=== PATIENT | female | born 1950 | race African-American/Black ===

== ENCOUNTER 2017-01-13 12:04 | Inpatient (IN) | payer OTHER ==
[2017-01-13 13:49] VITALS: BMI 23.3
--- NOTE | 2017-01-13 14:20 | HP ---
CIWA Score - CIWA Score Nausea/Vomitin Muscle Tremors: 3 Anxiety: 3 Agitation: 3 Paroxysmal Sweats: 2 Orientation: 0-Oriented Tacttile Disturbances: 2-Mild Itch/Numbness/Burn Auditory Disturbances: 2-Mild Harshness/Frighten Visual Disturbances: 2-Mild Sensitivity Headache: 2-Mild CIWA-Ar Total Score: 22 Admission ROS BHS - HPI Chief Complaint: I NEED HELP TO STOP DRINKING ALCOHOL,COCAINE,,SEEKING DETOX,[facility] M[facility]DAY,LAST MEDICATED TODAY REMOVAL OF MAS FROM VOCAL CORD BENIGN IN 2004 WEIGHT LOSS HEPATITIS C TREATED LONGEST PERIOD OF SOBRIETY 9 YEARS Allergies/Adverse Reactions: Allergies Allergy/AdvReac Type Severity Reaction Status Date / Time No Known Allergies Allergy Verified 01/13/17 14:03 History of Present Illness: THIS 66 YEARS OLD FEMALE WITH ALCOHOL,COCAINE DEPENDENCE,MMTP 80 MGS /DAY, FOR DETOX MENTIONED Exam Limitations: No Limitations - Ebola screening Have you traveled outside of the country in the last 21 days: No Have you had contact with anyone from an Ebola affected area: No Have you been sick,other than usual withdrawal symptoms: No Do you have a fever: No - Review of Systems Constitutional: Night Sweats, Changes in sleep, Weakness, Unintentional Wgt. Loss EENT: reports: Nose Congestion Respiratory: reports: No Symptoms reported, Other (ASTHMA,COPD) Cardiac: reports: No Symptoms Reported GI: reports: Nausea, Vomiting, Abdominal cramping : reports: No Symptoms Reported Musculoskeletal: reports: Back Pain, Muscle Pain Integumentary: reports: Dryness Neuro: reports: Headache, Tremors Endocrine: reports: No Symptoms Reported Hematology: reports: No Symptoms Reported Psychiatric: reports: No Sypmtoms Reported, Judgement Intact, Mood/Affect Appropiate, Anxious, Depressed Patient History - Patient Medical History Hx Anemia: No Hx Asthma: Yes (ON ALBUTEROL INHALER) Hx Chronic Obstructive Pulmonary Disease (COPD): Yes (ON ALBUTEROL INHALER) Hx Cancer: No Hx Cardiac Disorders: No Hx Congestive Heart Failure: No Hx Hypertension: No Hx Hypercholesterolemia: No Hx Pacemaker: No HX Cerebrovascular Accident: No Hx Seizures: No Hx Dementia: No Hx Diabetes: No Hx Gastrointestinal Disorders: No Hx Liver Disease: Yes Hx Genitourinary Disorders: No Hx Sexually Transmitted Disorders: No Hx Renal Disease (ESRD): No Hx Thyroid Disease: No Hx Human Immunodeficiency Virus (HIV): No (LAST 2010 NEGAIVE) Hx Hepatitis C: Yes (TREATED) Hx Depression: Yes (ANXIETY) Hx Suicide Attempt: No Hx Bipolar Disorder: No Hx Schizophrenia: No Other Medical History: NO SUICIDAL,NO HOMICIDAL - Patient Surgical History Other Surgical History: REMOVAL OF TUMOR FROM VOCAL CORD ,LITHROTRYPSY OF RIGHT 05/13 - PPD History Previous Implant?: Yes Documented Results: Positive w/o proof Implanted On Prior [facility] Admission?: No PPD to be Administered?: Yes - Reproductive History Patient is a Female of Child Bearing Age (11 -55 yrs old): No Patient : No - Smoking Cessation Smoking history: Current every day smoker Have you smoked in the past 12 months: Yes Aproximately how many cigarettes per day: 5 Cigars Per Day: 0 Hx Chewing Tobacco Use: No Initiated information on smoking cessation: Yes 'Breaking Loose' booklet given: 01/13/17 - Substance & Tx. History Hx Alcohol Use: Yes Hx Substance Use: Yes Substance Use Type: Alcohol, Cocaine Hx Substance Use Treatment: Yes (2001 [facility]) - Substances Abused Alcohol Route: Oral Frequency: Daily Amount used: 1/2 pint cognac/ 5 wine coolers Age of first use: 12 Date of Last Use: 01/12/17 Crack Route: Smoking Frequency: Daily Amount used: $60 Age of first use: 32 Date of Last Use: 01/13/17 Family Disease History - Family Disease History Family Disease History: Other: Father (ALCOHOL,), Mother (ALCOL, ) Admission Physical Exam [facility] - Vital Signs Vital Signs: Vital Signs - 24 hr 01/13/17 13:47 Temperature 97.1 F L Pulse Rate 78 Respiratory 20 Rate Blood Pressure 142/98 - Physical General Appearance: Yes: Moderate Distress, Tremorous, Irritable, Sweating, Anxious HEENTM: Yes: Normal ENT Inspection, TAINA, Pharynx Normal Respiratory: Yes: Lungs Clear, Normal Breath Sounds, No Respiratory Distress Neck: Yes: Within Normal Limits, Supple, Trachea in good position Breast: Yes: Breast Exam Deferred Cardiology: Yes: Within Normal Limits, Regular Rhythm, Regular Rate, S1, S2 Abdominal: Yes: Within Normal Limits, Normal Bowel Sounds, Non Tender, Flat, Soft Genitourinary: Yes: Within Normal Limits Back: Yes: Muscle Spasm Musculoskeletal: Yes: Back pain, Muscle Pain Extremities: Yes: Within Normal Limits, Normal Range of Motion, Tremors Neurological: Yes: 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 intact, Fully Oriented, Alert, Motor Strength 5/5 Integumentary: Yes: Dry Lymphatic: Yes: Within Normal Limits - Diagnostic (1) Alcohol dependence with uncomplicated withdrawal Current Visit: Yes Status: Acute (2) Cocaine dependence Current Visit: Yes Status: Acute (3) Asthma Current Visit: Yes Status: Acute (4) COPD (chronic obstructive pulmonary disease) Current Visit: Yes Status: Acute (5) Methadone maintenance therapy patient Current Visit: Yes Status: Acute (6) Hepatitis C Current Visit: Yes Status: Acute (7) Weight loss Current Visit: Yes Status: Acute (8) Insomnia Current Visit: Yes Status: Acute (9) Right kidney stone Current Visit: Yes Status: Acute Cleared for Admission [facility] - Detox or Rehab [facility] Level of Care: Medically Managed Detox Regimen/Protocol: Librium [facility] Breath Alcohol Content Breath Alcohol Content: 0 Urine Pregancy Test - Result Urine Test Results: Negative- NO Line Present Urine Drug Screen - Results Drug Screen Negative: No Urine Drug Screen Results: ELZA-Cocaine, OPI-Opiates, MTD-Methadone
[2017-01-13] MEDS ORDERED: diphenhydrAMINE HCL 50 MG CAPSULE PO PRN (14:42)
[2017-01-13] MEDS ORDERED: ACETAMINOPHEN 325 MG TABLET (FP) PO PRN (14:42)
[2017-01-13] MEDS ORDERED: P-EPHED 60MG/TRIPROLIDI 2.5MG TABLET PO PRN (14:42)
[2017-01-13] MEDS ORDERED: hydrOXYzine PAMOATE 25 MG CAPSULE (FP) PO PRN (14:42)
[2017-01-13] MEDS ORDERED: MAGNESIUM CITRATE 300 ML BOTTLE PO PRN (14:42)
[2017-01-13] MEDS ORDERED: NICOTINE POLACRILEX 2 MG GUM BUC PRN (14:42)
[2017-01-13] MEDS ORDERED: guaiFENesin/D-METHORPHAN HB 10 ML UNIT-DOSE CUPS PO PRN (14:42)
[2017-01-13] MEDS ORDERED: MAG HYDROX/AL HYDROX/SIMETH 30 ML UNIT-DOSE CUP PO PRN (14:42)
[2017-01-13] MEDS ORDERED: MENTHOL/PHENOL 1 EACH UD MM PRN (14:42)
[2017-01-13] MEDS ORDERED: LOPERAMIDE HCL 2 MG CAPSULE PO PRN (14:42)
[2017-01-13] MEDS ORDERED: MAGNESIUM HYDROX 2400MG/30ML ORAL SUSPENSION 30 ML CUP PO PRN (14:42)
[2017-01-13] MEDS ORDERED: chlordiazePOXIDE HCL 25 MG CAPSULE PO PRN (14:42)
[2017-01-13 16:50] LABS: MCHC 32.3 g/dl (32.0-36.0); MEAN CELL VOLUME 92.7 fl (80-96); PLATELET COUNT 188 K/MM3 (134-434); RDW 15.3 % (11.6-15.6); WHITE BLOOD COUNT 3.9 K/mm3 (4.0-10.0)
[2017-01-13 17:01] LABS: ALBUMIN 3.6 g/dl (3.4-5.0); ANION GAP 7 (8-16); BILIRUBIN,TOTAL 0.6 mg/dL (0.2-1.0); CALCIUM 9.3 mg/dL (8.5-10.1); CO2 32 mmol/L (21-32); CREATININE 1.2 mg/dL (0.55-1.02); GLUCOSE,RANDOM 62 mg/dL (74-106); SGOT/AST 35 U/L (15-37); SGPT/ALT 38 U/L (12-78); TOT PROT 7.5 g/dl (6.4-8.2)
[2017-01-13 17:02] LABS: ALK PHOS 83 U/L (45-117)
[2017-01-13 17:11] LABS: URINE APPEARANCE CLEAR; URINE BILIRUBIN NEGATIVE (NEGATIVE); URINE BLOOD 2+ (NEGATIVE); URINE COLOR YELLOW; URINE GLUCOSE (UA) NEGATIVE (NEGATIVE); URINE KETONE NEGATIVE (NEGATIVE); URINE LEUK ESTERASE TRACE (NEGATIVE); URINE NITRITE NEGATIVE (NEGATIVE); URINE PROTEIN NEGATIVE (NEGATIVE)
[2017-01-13 17:25] LABS: URINE RBC 7 /hpf (0-3); URINE WBC 11 /hpf (3-5)
[2017-01-13] MEDS: chlordiazePOXIDE HCL 25 MG CAPSULE PO SCH ×2 (17:30→22:04)
[2017-01-13 17:39] LABS: PLATELET ESTIMATE ADEQUATE (NORMAL)
[2017-01-13] MEDS ORDERED: ALBUTEROL SO4 2.5/IPRATROPIUM 0.5 INH SOL 3 ML VIAL.NEB. NEB PRN (19:14)
[2017-01-13] MEDS: ALBUTEROL SO4 18 GM HFA INHALER IH PRN (19:22)
[2017-01-13] MEDS: THIAMINE HCL 100 MG TABLET (FP) PO SCH (22:03)
[2017-01-13 23:57] LABS: HIV 1 & 2 AB NEGATIVE; HIV 1 AGp24 NEGATIVE
[2017-01-14] MEDS: chlordiazePOXIDE HCL 25 MG CAPSULE PO SCH ×4 (06:09→23:02)
[2017-01-14] MEDS: ALBUTEROL SO4 18 GM HFA INHALER IH PRN ×2 (06:10→12:49)
[2017-01-14] MEDS ORDERED: METHADONE HCL 40 MG DISPERSABLE TABLET PO SCH (08:15)
--- NOTE | 2017-01-14 09:38 | CONSULT ---
[facility] Psychiatric Consult - Data Date of interview: 01/14/17 Admission source: [facility] Identifying data: This is 66 years old female with psychiatric hospitalization history, intoxicated with: Alcohol, Cocaine and Nicotine Substance Abuse History: Smoking history: Current every day smoker. Have you smoked in the past 12 months: Yes. Aproximately how many cigarettes per day: 5. Cigars Per Day: 0. Hx Chewing Tobacco Use: No. Initiated information on smoking cessation: Yes. 'Breaking Loose' booklet given: 01/13/17. - Substance & Tx. History. Hx Alcohol Use: Yes. Hx Substance Use: Yes. Substance Use Type : Alcohol, Cocaine. Hx Substance Use Treatment: Yes (2001 [facility]). - Substances Abused. Alcohol. Route: Oral. Frequency: Daily. Amount used: 1 /2 pint cognac/ 5 wine coolers. Age of first use: 12. Date of Last Use: . Crack. Route: Smoking. Frequency: Daily. Amount used: $60. Age of first use: 32. Date of Last Use: 01/13/17 Medical History: Right knee injury history, Asthma COPD, Weight bloss, HepC+, MMTO 80MG POQD Psychiatric History: Patient reports history of depression , [facility], denies suicidal history, reports taking prior to admission: Wellbutrin 75 mg poqd Physical/Sexual Abuse/Trauma History: Denies Additional Comment: Wellbutrin 75 mg poqd Mental Status Exam - Mental Status Exam Alert and Oriented to: Person Cognitive Function: Fair Patient Appearance: Unkempt Mood: Sad Affect: Flat Patient Behavior: Sedated Speech Pattern: Delayed Voice Loudness: Mildly Soft/Quiet Thought Process: Circumstantial Thought Disorder: Being Controlled Hallucinations: Denies Suicidal Ideation: Denies Homicidal Ideation: Denies Insight/Judgement: Fair Sleep: Difficulty falling asleep Appetite: Weight loss Muscle strength/Tone: Mild Hypotonicity Gait/Station: Shuffling Additional Comments: Wellbutrin 75 mg poqd Psychiatric Findings - Problem List ([place] 1, 2,3) (1) Alcohol dependence with uncomplicated withdrawal Current Visit: Yes Status: Acute (2) Cocaine dependence Current Visit: Yes Status: Acute (3) Methadone maintenance therapy patient Current Visit: Yes Status: Acute (4) Weight loss Current Visit: Yes Status: Acute (5) Drug-induced mood disorder Current Visit: Yes Status: Acute - Initial Treatment Plan Initial Treatment Plan: Wellbutrin 75 mg poqd
[2017-01-14] MEDS: PRENATAL VITAMINS W/ FOLIC ACID TABLET (FP) PO SCH (10:06)
[2017-01-14] MEDS: buPROPion HCL 75 MG TABLET PO SCH (10:06)
--- NOTE | 2017-01-14 10:34 | EKG ---
Test Reason : Blood Pressure : / mmHG Vent. Rate : 067 BPM Atrial Rate : 067 BPM P-R Int : 146 ms QRS Dur : 092 ms QT Int : 368 ms P-R-T Axes : 068 -22 026 degrees QTc Int : 388 ms NORMAL SINUS RHYTHM POSSIBLE LEFT ATRIAL ENLARGEMENT INCOMPLETE RIGHT BUNDLE BRANCH BLOCK LEFT VENTRICULAR HYPERTROPHY CANNOT RULE OUT SEPTAL INFARCT , AGE UNDETERMINED ABNORMAL ECG NO PREVIOUS ECGS AVAILABLE Confirmed by SUNI CRAIN, ANA ([id number]) on 01/14/2017 10:34:14 AM Referred By: Bishnu Conklin Confirmed By:ANA CULP MD
--- NOTE | 2017-01-14 10:36 | PN ---
S CIWA - CIWA Score Nausea/Vomitin-No Nausea/No Vomiting Muscle Tremors: 4-Moderate,w/Arms Extend Anxiety: 3 Agitation: 3 Paroxysmal Sweats: 3 Orientation: 0-Oriented Tacttile Disturbances: 0-None Auditory Disturbances: 0-None Visual Disturbances: 0-None Headache: 0-None Present CIWA-Ar Total Score: 13 S Progress Note (SOAP) Subjective: gas sweats body aches shakes i would like my methadone maintenance time switched to a later time about 10am. Objective: 01/14/17 10:30 Vital Signs Temperature 98.1 F 01/14/17 10:19 Pulse Rate 87 01/14/17 10:19 Respiratory Rate 18 01/14/17 10:19 Blood Pressure 142/87 01/14/17 10:19 O2 Sat by Pulse Oximetry (%) Laboratory Tests 01/13/17 01/13/17 01/13/17 14:30 14:30 14:30 WBC 3.9 L RBC 4.47 Hgb 13.4 Hct 41.4 MCV 92.7 MCH 30.0 MCHC 32.3 RDW 15.3 Plt Count 188 MPV 11.0 Platelet Estimate Adequate Platelet Comment Few giant plts RBC Morphology Sodium 143 Potassium 4.1 Chloride 104 Carbon Dioxide 32 Anion Gap 7 L BUN 15 Creatinine 1.2 H Creat Clearance w eGFR 45.23 Random Glucose 62 L Calcium 9.3 Total Bilirubin 0.6 AST 35 ALT 38 Alkaline Phosphatase 83 Total Protein 7.5 Albumin 3.6 Urine Color Urine Appearance Urine pH Ur Specific [place] Urine Protein Urine Glucose (UA) Urine Ketones Urine Blood Urine Nitrite Urine Bilirubin Urine Urobilinogen Urine RBC Urine WBC Ur Epithelial Cells HIV 1&2 Antibody Screen Negative HIV P24 Antigen Negative 01/13/17 15:00 WBC RBC Hgb Hct MCV MCH MCHC RDW Plt Count MPV Platelet Estimate Platelet Comment RBC Morphology Sodium Potassium Chloride Carbon Dioxide Anion Gap BUN Creatinine Creat Clearance w eGFR Random Glucose Calcium Total Bilirubin AST ALT Alkaline Phosphatase Total Protein Albumin Urine Color Yellow Urine Appearance Clear Urine pH 6.0 Ur Specific [place] 1.015 Urine Protein Negative Urine Glucose (UA) Negative Urine Ketones Negative Urine Blood 2+ H Urine Nitrite Negative Urine Bilirubin Negative Urine Urobilinogen 2.0 H Urine RBC 7 Urine WBC 11 Ur Epithelial Cells Rare HIV 1&2 Antibody Screen HIV P24 Antigen aaox3 ambulating no acute distress Assessment: 01/14/17 10:36 withdrawal sx Plan: continue detox increase fluids methadone maintenance time switched to 10am as per pt request
[2017-01-14] MEDS ORDERED: FLU VACCINE QUAD 60 MCG/0.5 ML (MDV 17-18) IM ONE (12:00)
[2017-01-14] MEDS ORDERED: PNEUMOC 13-VAL CONJ-DIP CRM/PF 0.5 ML DISP.SYRIN IM ONE (12:00)
[2017-01-14] MEDS ORDERED: PNEUMOCOCCAL 23 VACCINE 0.5 ML VIAL IM ONE (12:00)
[2017-01-14] MEDS ORDERED: ALBUTEROL SO4 2.5/IPRATROPIUM 0.5 INH SOL 3 ML VIAL.NEB. NEB PRN (12:38)
[2017-01-14] MEDS: SIMETHICONE 80 MG TAB.CHEW (FP) PO PRN ×2 (12:51→17:44)
[2017-01-14] MEDS: THIAMINE HCL 100 MG TABLET (FP) PO SCH (23:02)
[2017-01-15] MEDS: IBUPROFEN 400 MG TABLET (FP) PO PRN ×2 (02:34→22:22)
[2017-01-15] MEDS: chlordiazePOXIDE HCL 25 MG CAPSULE PO SCH ×2 (05:49→10:24)
[2017-01-15] MEDS: ALBUTEROL SO4 18 GM HFA INHALER IH PRN (10:23)
[2017-01-15] MEDS: buPROPion HCL 75 MG TABLET PO SCH (10:23)
[2017-01-15] MEDS: PRENATAL VITAMINS W/ FOLIC ACID TABLET (FP) PO SCH (10:24)
[2017-01-15] MEDS: SIMETHICONE 80 MG TAB.CHEW (FP) PO PRN ×2 (10:24→14:25)
[2017-01-15] MEDS: METHADONE HCL 40 MG DISPERSABLE TABLET PO SCH (10:24)
--- NOTE | 2017-01-15 12:30 | PN ---
S CIWA - CIWA Score Nausea/Vomitin Muscle Tremors: 3 Anxiety: 3 Agitation: 2 Paroxysmal Sweats: 1-Minimal Palms Moist Orientation: 0-Oriented Tacttile Disturbances: 1-Very Mild Itch/Numbness Auditory Disturbances: 1-Very Mild Visual Disturbances: 1-Very Mild Sensitivity Headache: 2-Mild CIWA-Ar Total Score: 17 BHS Progress Note (SOAP) Subjective: alert,irritable,anxious,interrupted sleep,pain in the body Objective: 01/15/17 12:29 Vital Signs Temperature 97.9 F 01/15/17 09:45 Pulse Rate 82 01/15/17 09:45 Respiratory Rate 16 01/15/17 09:45 Blood Pressure 125/71 01/15/17 09:45 O2 Sat by Pulse Oximetry (%) Laboratory Last Values WBC 3.9 K/mm3 (4.0-10.0) L 01/13/17 14:30 RBC 4.47 M/mm3 (3.60-5.2) 01/13/17 14:30 Hgb 13.4 GM/dL (10.7-15.3) 01/13/17 14:30 Hct 41.4 % (32.4-45.2) 01/13/17 14:30 MCV 92.7 fl (80-96) 01/13/17 14:30 MCH 30.0 pg (25.7-33.7) 01/13/17 14:30 MCHC 32.3 g/dl (32.0-36.0) 01/13/17 14:30 RDW 15.3 % (11.6-15.6) 01/13/17 14:30 Plt Count 188 K/MM3 (134-434) 01/13/17 14:30 MPV 11.0 fl (7.5-11.1) 01/13/17 14:30 Platelet Estimate Adequate (NORMAL) 01/13/17 14:30 Platelet Comment Few giant plts 01/13/17 14:30 RBC Morphology 01/13/17 14:30 Sodium 143 mmol/L (136-145) 01/13/17 14:30 Potassium 4.1 mmol/L (3.5-5.1) 01/13/17 14:30 Chloride 104 mmol/L (98-107) 01/13/17 14:30 Carbon Dioxide 32 mmol/L (21-32) 01/13/17 14:30 Anion Gap 7 (8-16) L 01/13/17 14:30 BUN 15 mg/dL (7-18) 01/13/17 14:30 Creatinine 1.2 mg/dL (0.55-1.02) H 01/13/17 14:30 Creat Clearance w eGFR 45.23 (>60) 01/13/17 14:30 Random Glucose 62 mg/dL (74-106) L 01/13/17 14:30 Calcium 9.3 mg/dL (8.5-10.1) 01/13/17 14:30 Total Bilirubin 0.6 mg/dL (0.2-1.0) 01/13/17 14:30 AST 35 U/L (15-37) 01/13/17 14:30 ALT 38 U/L (12-78) 01/13/17 14:30 Alkaline Phosphatase 83 U/L (45-117) 01/13/17 14:30 Total Protein 7.5 g/dl (6.4-8.2) 01/13/17 14:30 Albumin 3.6 g/dl (3.4-5.0) 01/13/17 14:30 Urine Color Yellow 01/13/17 15:00 Urine Appearance Clear 01/13/17 15:00 Urine pH 6.0 (5.0-8.0) 01/13/17 15:00 Ur Specific [place] 1.015 (1.005-1.025) 01/13/17 15:00 Urine Protein Negative (NEGATIVE) 01/13/17 15:00 Urine Glucose (UA) Negative (NEGATIVE) 01/13/17 15:00 Urine Ketones Negative (NEGATIVE) 01/13/17 15:00 Urine Blood 2+ (NEGATIVE) H 01/13/17 15:00 Urine Nitrite Negative (NEGATIVE) 01/13/17 15:00 Urine Bilirubin Negative (NEGATIVE) 01/13/17 15:00 Urine Urobilinogen 2.0 mg/dL (0.2-1.0) H 01/13/17 15:00 Urine RBC 7 /hpf (0-3) 01/13/17 15:00 Urine WBC 11 /hpf (3-5) 01/13/17 15:00 Ur Epithelial Cells Rare /hpf (FEW) 01/13/17 15:00 RPR Titer Reactive 1:1 (NONREACTIVE) H 01/13/17 14:30 T.pallidum Ab (MHA) Reactive (NONREACTIVE) 01/13/17 14:30 HIV 1&2 Antibody Screen Negative 01/13/17 14:30 HIV P24 Antigen Negative 01/13/17 14:30 01/15/17 12:33 patient was treated for syphilis 10 years ago Assessment: 01/15/17 12:33 withdrawal sympto Plan: continue detox,lidoderm patch for low back pain
[2017-01-15] MEDS ORDERED: LIDOCAINE 5% TOPICAL PATCH TP SCH (12:45)
[2017-01-15] MEDS: LIDOCAINE 5% TOPICAL PATCH TP SCH (15:55)
[2017-01-15] MEDS: chlordiazePOXIDE 5 MG CAPSULE PO SCH ×2 (17:58→22:38)
[2017-01-15] MEDS ORDERED: LIDOCAINE PATCH REMOVAL MC SCH (22:00)
[2017-01-15] MEDS: THIAMINE HCL 100 MG TABLET (FP) PO SCH (22:20)
[2017-01-15] MEDS: LIDOCAINE PATCH REMOVAL MC SCH (22:20)
[2017-01-16] MEDS: chlordiazePOXIDE 5 MG CAPSULE PO SCH ×2 (06:44→10:18)
[2017-01-16] MEDS ORDERED: AZITHROMYCIN 250 MG TABLET PO ONE (09:12)
--- NOTE | 2017-01-16 09:54 | PN ---
S Progress Note (SOAP) Subjective: alert,irritable,anxious,pain in the back and knee,coughing with yellow anju mucous Objective: 01/16/17 09:52 Vital Signs Temperature 99.3 F 01/16/17 09:47 Pulse Rate 81 01/16/17 09:47 Respiratory Rate 16 01/16/17 09:47 Blood Pressure 144/78 01/16/17 09:47 O2 Sat by Pulse Oximetry (%) Assessment: 01/16/17 09:52 withdrawal symptom,lung clear Plan: continue detox,zithromax for bronchitis
[2017-01-16] MEDS: buPROPion HCL 75 MG TABLET PO SCH (10:18)
[2017-01-16] MEDS: PRENATAL VITAMINS W/ FOLIC ACID TABLET (FP) PO SCH (10:18)
[2017-01-16] MEDS: METHADONE HCL 40 MG DISPERSABLE TABLET PO SCH (10:19)
[2017-01-16] MEDS: LIDOCAINE 5% TOPICAL PATCH TP SCH (10:23)
[2017-01-16] MEDS: chlordiazePOXIDE HCL 10 MG CAPSULE PO SCH ×2 (17:49→22:52)
[2017-01-16] MEDS: LIDOCAINE PATCH REMOVAL MC SCH (22:22)
[2017-01-16] MEDS: THIAMINE HCL 100 MG TABLET (FP) PO SCH (22:23)
[2017-01-17] MEDS: chlordiazePOXIDE HCL 10 MG CAPSULE PO SCH ×2 (05:17→11:48)
[2017-01-17] MEDS: IBUPROFEN 400 MG TABLET (FP) PO PRN (05:17)
[2017-01-17] MEDS ORDERED: AZITHROMYCIN 250 MG TABLET PO SCH (10:00)
[2017-01-17 10:56] VITALS: BP 136/69; PULSE 80; TEMP 97.4
--- NOTE | 2017-01-17 11:12 | DS ---
[facility] Detox Discharge Summary Admission Date: 01/13/17 Discharge Date: 01/17/17 - History Present History: Alcohol Dependence, Cocaine Dependence, MMTP Pertinent Past History: asthma hepatitis c weight loss right kidney stone insomnia low back pain acute bronchitis arthritis right knee - Physical Exam Results Vital Signs: Vital Signs Temperature 97.4 F L 01/17/17 10:55 Pulse Rate 80 01/17/17 10:55 Respiratory Rate 16 01/17/17 10:55 Blood Pressure 136/69 01/17/17 10:55 O2 Sat by Pulse Oximetry (%) - Treatment Hospital Course: Detox Protocol Followed, Detoxed Safely, Responded well, Discharged Condition Good, Rehab Referral Accepted Patient has Accepted a Rehab Referral to: follow up with rehab as protocol - Medication Discharge Medications: Ambulatory Orders Albuterol Sulfate Inhaler - [Ventolin Hfa Inhaler -] 2 inh PO Q4H PRN 01/13/17 Bupropion HCl [Wellbutrin -] 75 mg PO DAILY 01/13/17 Pregabalin [Lyrica -] 75 mg PO DAILY 01/13/17 Bupropion HCl [Wellbutrin -] 75 mg PO DAILY #30 tablet 01/14/17 - Diagnosis (1) Alcohol dependence with uncomplicated withdrawal Current Visit: Yes Status: Chronic (2) Cocaine dependence Current Visit: Yes Status: Chronic Qualifiers: Substance use status: uncomplicated Qualified Code(s): F14.20 - Cocaine dependence, uncomplicated (3) Asthma Current Visit: Yes Status: Chronic Qualifiers: Asthma severity: mild intermittent Asthma complication type: uncomplicated Qualified Code(s): J45.20 - Mild intermittent asthma, uncomplicated (4) COPD (chronic obstructive pulmonary disease) Current Visit: Yes Status: Chronic (5) Methadone maintenance therapy patient Current Visit: Yes Status: Chronic (6) Hepatitis C Current Visit: Yes Status: Chronic Qualifiers: Viral hepatitis chronicity: chronic Hepatic coma status: without hepatic coma Qualified Code(s): B18.2 - Chronic viral hepatitis C (7) Weight loss Current Visit: Yes Status: Acute (8) Insomnia Current Visit: Yes Status: Chronic Qualifiers: Insomnia type: primary Qualified Code(s): F51.01 - Primary insomnia (9) Right kidney stone Current Visit: Yes Status: Acute (10) Low back pain Current Visit: Yes Status: Acute (11) Acute bronchitis Current Visit: Yes Status: Acute (12) Arthritis Current Visit: Yes Status: Acute - AMA Did Patient Leave Against Medical Advice: No
[2017-01-17] MEDS: PRENATAL VITAMINS W/ FOLIC ACID TABLET (FP) PO SCH (11:46)
[2017-01-17] MEDS: buPROPion HCL 75 MG TABLET PO SCH (11:46)
[2017-01-17] MEDS: LIDOCAINE 5% TOPICAL PATCH TP SCH (11:47)
[2017-01-17] MEDS: METHADONE HCL 40 MG DISPERSABLE TABLET PO SCH (11:50)
== END 2017-01-17 12:25 | disposition other institution (70) | DRG 773 ==
LOC: YASAS 12:04 → Y6N 14:24
PROVIDERS: ADMIT Internal Medicine; ATTEND Internal Medicine
PROC: HZ2ZZZZ Detoxification Services for Substance Abuse Treatment (ICD-10-PCS; principal; 2017-01-13)
DX: F11.20 Opioid dependence, uncomplicated (principal); F10.230 Alcohol dependence with withdrawal, uncomplicated; F14.20 Cocaine dependence, uncomplicated; F19.24 Other psychoactive substance dependence with psychoactive substance-induced mood disorder; F51.01 Primary insomnia; B18.2 Chronic viral hepatitis C; J45.909 Unspecified asthma, uncomplicated; J44.9 Chronic obstructive pulmonary disease, unspecified; M54.5 Low back pain; M12.9 Arthropathy, unspecified; N20.0 Calculus of kidney; R63.4 Abnormal weight loss; Z68.23 Body mass index [BMI] 23.0-23.9, adult
CPT/HCPCS: 36415; 71020-TC; 80053; 81003; 81015; 85027; 86593; 86780; 87389; 90688; 90732; 93005; 93010; 94640; G0008; G0009

== ENCOUNTER 2017-01-17 12:58 | Inpatient (IN) | payer OTHER ==
[2017-01-17 14:25] VITALS: BMI 24.1
[2017-01-17] MEDS ORDERED: MAG HYDROX/AL HYDROX/SIMETH 30 ML UNIT-DOSE CUP PO PRN (14:27)
[2017-01-17] MEDS ORDERED: MENTHOL/PHENOL 1 EACH UD MM PRN (14:27)
[2017-01-17] MEDS ORDERED: LOPERAMIDE HCL 2 MG CAPSULE PO PRN (14:27)
[2017-01-17] MEDS ORDERED: P-EPHED 60MG/TRIPROLIDI 2.5MG TABLET PO PRN (14:27)
[2017-01-17] MEDS ORDERED: guaiFENesin/D-METHORPHAN HB 10 ML UNIT-DOSE CUPS PO PRN (14:27)
[2017-01-17] MEDS ORDERED: MAGNESIUM CITRATE 300 ML BOTTLE PO PRN (14:27)
[2017-01-17] MEDS ORDERED: hydrOXYzine PAMOATE 50 MG CAPSULE (FP) PO PRN (14:27)
--- NOTE | 2017-01-17 14:34 | HP ---
[facility] Rehab Assess/Revision - Admission History Admitted to Rehab from: [facility] [place] Date of Admission to Rehab: 01/17/17 - Vital signs Vital Signs: Vital Signs Period Temp Pulse Resp BP Sys/Burgess Pulse Ox Last 24 Hr 97.1 F-97.1 F 80-80 18-18 106-106/71-71 - Findings Detox History & Physical reviewed: Yes Concur with findings: Yes Comments/Additional Findings: for rehab as protocol
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
[2017-01-17] MEDS ORDERED: METHADONE HCL 40 MG DISPERSABLE TABLET PO ONE (15:00)
[2017-01-17] MEDS: THIAMINE HCL 100 MG TABLET (FP) PO SCH (20:59)
[2017-01-17] MEDS ORDERED: PT OWN MED DRAWER 7, Y5N ONE ×2 (21:05→23:15)
[2017-01-17] MEDS: LIDOCAINE PATCH REMOVAL MC SCH (21:59)
[2017-01-17] MEDS: ALBUTEROL SO4 18 GM HFA INHALER IH PRN (23:15)
[2017-01-18] MEDS: METHADONE HCL 40 MG DISPERSABLE TABLET PO SCH (06:40)
[2017-01-18] MEDS: ACETAMINOPHEN 325 MG TABLET (FP) PO PRN (06:40)
[2017-01-18] MEDS: AZITHROMYCIN 250 MG TABLET PO SCH (10:42)
[2017-01-18] MEDS: LIDOCAINE 5% TOPICAL PATCH TP SCH (10:42)
[2017-01-18] MEDS: PRENATAL VITAMINS W/ FOLIC ACID TABLET (FP) PO SCH (10:42)
[2017-01-18] MEDS: buPROPion HCL 75 MG TABLET PO SCH (10:42)
[2017-01-18] MEDS: NICOTINE POLACRILEX 2 MG GUM BUC PRN (13:25)
[2017-01-18] MEDS: THIAMINE HCL 100 MG TABLET (FP) PO SCH (22:12)
[2017-01-18] MEDS: LIDOCAINE PATCH REMOVAL MC SCH (22:13)
[2017-01-18] MEDS ORDERED: PT OWN MED DRAWER 7, Y5N ONE (22:17)
[2017-01-19] MEDS ORDERED: PT OWN MED DRAWER 7, Y5N ONE ×3 (00:46→09:07)
[2017-01-19] MEDS: MAGNESIUM HYDROX 2400MG/30ML ORAL SUSPENSION 30 ML CUP PO PRN (00:47)
[2017-01-19] MEDS: ALBUTEROL SO4 18 GM HFA INHALER IH PRN (00:47)
[2017-01-19] MEDS: METHADONE HCL 40 MG DISPERSABLE TABLET PO SCH (06:33)
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
[2017-01-19] MEDS: LIDOCAINE 5% TOPICAL PATCH TP SCH (10:51)
[2017-01-19] MEDS: buPROPion HCL 75 MG TABLET PO SCH (11:54)
[2017-01-19] MEDS: PRENATAL VITAMINS W/ FOLIC ACID TABLET (FP) PO SCH (11:54)
[2017-01-19] MEDS: AZITHROMYCIN 250 MG TABLET PO SCH (11:54)
--- NOTE | 2017-01-19 15:34 | PN ---
S Progress Note (SOAP) Subjective: Pt. reports falling down three times over the weekend,however she never reported to nursing staff.Denies LOC, denies head trauma. Objective: 01/19/17 15:31 Vital Signs 01/19/17 14:34 Temperature 99.2 F Pulse Rate 80 Respiratory 18 Rate Blood Pressure 140/81 Exam : No signs of injury on knees where patient claims she made contact with the floor. Assessment: 01/19/17 15:34 Fall without head trauma Plan: Fall protocol #2
[2017-01-19] MEDS: IBUPROFEN 400 MG TABLET (FP) PO PRN (20:35)
[2017-01-19] MEDS: traZODone HCL 50 MG TABLET (FP) PO SCH (22:28)
[2017-01-19] MEDS: LIDOCAINE PATCH REMOVAL MC SCH (22:29)
[2017-01-19] MEDS: THIAMINE HCL 100 MG TABLET (FP) PO SCH (22:32)
[2017-01-20] MEDS ORDERED: PT OWN MED DRAWER 7, Y5N ONE (09:04)
[2017-01-20] MEDS: METHADONE HCL 40 MG DISPERSABLE TABLET PO SCH ×2 (10:32→23:41)
[2017-01-20] MEDS: buPROPion HCL 75 MG TABLET PO SCH (10:33)
[2017-01-20] MEDS: PRENATAL VITAMINS W/ FOLIC ACID TABLET (FP) PO SCH (10:33)
[2017-01-20] MEDS: AZITHROMYCIN 250 MG TABLET PO SCH (10:34)
[2017-01-20] MEDS: LIDOCAINE 5% TOPICAL PATCH TP SCH (10:36)
[2017-01-20] MEDS: traZODone HCL 50 MG TABLET (FP) PO SCH (23:41)
[2017-01-20] MEDS: LIDOCAINE PATCH REMOVAL MC SCH (23:42)
[2017-01-20] MEDS: THIAMINE HCL 100 MG TABLET (FP) PO SCH (23:42)
--- NOTE | 2017-01-21 06:54 | PN ---
S Progress Note (SOAP) Subjective: Pt. is alert and oriented x 3. Pt. reports having an unwitnessed fall in her room. She states she was coming from the bathroom and tripped on an open drawer and fell onto her bed. She has had multiple falls recently. Objective: 01/21/17 06:51 Vital Signs 01/21/17 04:05 Temperature 98.2 F Pulse Rate 75 Respiratory 18 Rate Blood Pressure 126/82 Assessment: 01/21/17 06:52 Fell onto to bed; no injury noted or reported. No tenderness on palpation bruises. Plan: Fall precautions reinforced Encouraged to ambulate with her cane at all times Ammonia Fall protocol #2
[2017-01-21] MEDS: PRENATAL VITAMINS W/ FOLIC ACID TABLET (FP) PO SCH (09:26)
[2017-01-21] MEDS: LIDOCAINE 5% TOPICAL PATCH TP SCH (09:26)
[2017-01-21] MEDS: METHADONE HCL 40 MG DISPERSABLE TABLET PO SCH ×2 (09:26→22:10)
[2017-01-21] MEDS: buPROPion HCL 75 MG TABLET PO SCH (09:26)
[2017-01-21 13:58] LABS: URINE APPEARANCE CLOUDY; URINE BILIRUBIN NEGATIVE (NEGATIVE); URINE BLOOD 1+ (NEGATIVE); URINE COLOR YELLOW; URINE GLUCOSE (UA) NEGATIVE (NEGATIVE); URINE KETONE NEGATIVE (NEGATIVE); URINE NITRITE NEGATIVE (NEGATIVE); URINE PROTEIN NEGATIVE (NEGATIVE); URINE UROBILINOGEN NEGATIVE mg/dL (0.2-1.0)
[2017-01-21 14:08] LABS: URINE LEUK ESTERASE 3+ (NEGATIVE)
[2017-01-21 14:18] LABS: URINE MUCUS RARE; URINE RBC 2 /hpf (0-3); URINE WBC 110 /hpf (3-5)
[2017-01-21] MEDS: IBUPROFEN 400 MG TABLET (FP) PO PRN (18:13)
[2017-01-21] MEDS: traZODone HCL 50 MG TABLET (FP) PO SCH (22:10)
[2017-01-21] MEDS: THIAMINE HCL 100 MG TABLET (FP) PO SCH (22:10)
[2017-01-21] MEDS: LIDOCAINE PATCH REMOVAL MC SCH (22:11)
[2017-01-22] MEDS: PRENATAL VITAMINS W/ FOLIC ACID TABLET (FP) PO SCH (11:09)
[2017-01-22] MEDS: buPROPion HCL 75 MG TABLET PO SCH (11:09)
[2017-01-22] MEDS: LIDOCAINE 5% TOPICAL PATCH TP SCH (11:09)
[2017-01-22] MEDS: METHADONE HCL 40 MG DISPERSABLE TABLET PO SCH ×2 (11:10→20:59)
[2017-01-22] MEDS: NICOTINE POLACRILEX 2 MG GUM BUC PRN (11:13)
[2017-01-22] MEDS: IBUPROFEN 400 MG TABLET (FP) PO PRN (20:56)
[2017-01-22] MEDS: traZODone HCL 50 MG TABLET (FP) PO SCH (20:59)
[2017-01-22] MEDS: THIAMINE HCL 100 MG TABLET (FP) PO SCH (20:59)
[2017-01-22] MEDS: LIDOCAINE PATCH REMOVAL MC SCH (21:00)
[2017-01-23] MEDS: METHADONE HCL 40 MG DISPERSABLE TABLET PO SCH ×2 (10:47→21:28)
[2017-01-23] MEDS: buPROPion HCL 75 MG TABLET PO SCH (10:48)
[2017-01-23] MEDS: PRENATAL VITAMINS W/ FOLIC ACID TABLET (FP) PO SCH (10:48)
[2017-01-23] MEDS: LIDOCAINE 5% TOPICAL PATCH TP SCH (10:48)
[2017-01-23] MEDS: THIAMINE HCL 100 MG TABLET (FP) PO SCH (21:27)
[2017-01-23] MEDS: traZODone HCL 50 MG TABLET (FP) PO SCH (21:27)
[2017-01-23] MEDS: LIDOCAINE PATCH REMOVAL MC SCH (21:29)
[2017-01-23] MEDS: IBUPROFEN 400 MG TABLET (FP) PO PRN (21:30)
[2017-01-23] MEDS: NICOTINE POLACRILEX 2 MG GUM BUC PRN (21:32)
[2017-01-23] MEDS: diphenhydrAMINE HCL 50 MG CAPSULE PO PRN (23:49)
[2017-01-24] MEDS: METHADONE HCL 40 MG DISPERSABLE TABLET PO SCH ×2 (10:11→21:16)
[2017-01-24] MEDS: PRENATAL VITAMINS W/ FOLIC ACID TABLET (FP) PO SCH (10:11)
[2017-01-24] MEDS: buPROPion HCL 75 MG TABLET PO SCH (10:11)
[2017-01-24] MEDS: LIDOCAINE 5% TOPICAL PATCH TP SCH (10:12)
[2017-01-24] MEDS: traZODone HCL 50 MG TABLET (FP) PO SCH (21:16)
[2017-01-24] MEDS: diphenhydrAMINE HCL 50 MG CAPSULE PO PRN (21:16)
[2017-01-24] MEDS: THIAMINE HCL 100 MG TABLET (FP) PO SCH (21:16)
[2017-01-24] MEDS: LIDOCAINE PATCH REMOVAL MC SCH (22:14)
[2017-01-25] MEDS: PRENATAL VITAMINS W/ FOLIC ACID TABLET (FP) PO SCH (10:16)
[2017-01-25] MEDS: buPROPion HCL 75 MG TABLET PO SCH (10:16)
[2017-01-25] MEDS: LIDOCAINE 5% TOPICAL PATCH TP SCH (10:17)
[2017-01-25] MEDS: METHADONE HCL 40 MG DISPERSABLE TABLET PO SCH ×2 (10:17→21:34)
[2017-01-25] MEDS: IBUPROFEN 400 MG TABLET (FP) PO PRN (18:18)
[2017-01-25] MEDS: MAGNESIUM HYDROX 2400MG/30ML ORAL SUSPENSION 30 ML CUP PO PRN (18:22)
[2017-01-25] MEDS: traZODone HCL 50 MG TABLET (FP) PO SCH (21:34)
[2017-01-25] MEDS: THIAMINE HCL 100 MG TABLET (FP) PO SCH (21:34)
[2017-01-25] MEDS: LIDOCAINE PATCH REMOVAL MC SCH (21:34)
[2017-01-25] MEDS: diphenhydrAMINE HCL 50 MG CAPSULE PO PRN (21:35)
[2017-01-26] MEDS: buPROPion HCL 75 MG TABLET PO SCH (10:54)
[2017-01-26] MEDS: PRENATAL VITAMINS W/ FOLIC ACID TABLET (FP) PO SCH (10:54)
[2017-01-26] MEDS: LIDOCAINE 5% TOPICAL PATCH TP SCH (10:55)
[2017-01-26] MEDS: METHADONE HCL 40 MG DISPERSABLE TABLET PO SCH ×2 (11:23→21:55)
[2017-01-26] MEDS ORDERED: DOCUSATE SODIUM 100 MG CAPSULE (FP) PO ONE (13:36)
[2017-01-26] MEDS: NICOTINE POLACRILEX 2 MG GUM BUC PRN (19:15)
[2017-01-26] MEDS: DOCUSATE SODIUM 100 MG CAPSULE (FP) PO SCH (21:55)
[2017-01-26] MEDS: THIAMINE HCL 100 MG TABLET (FP) PO SCH (21:56)
[2017-01-26] MEDS: traZODone HCL 50 MG TABLET (FP) PO SCH (21:56)
[2017-01-26] MEDS: SENNOSIDES 8.6MG TABLET (FP) PO SCH (21:56)
[2017-01-26] MEDS: LIDOCAINE PATCH REMOVAL MC SCH (22:29)
[2017-01-27] MEDS: buPROPion HCL 75 MG TABLET PO SCH (09:53)
[2017-01-27] MEDS: LIDOCAINE 5% TOPICAL PATCH TP SCH (09:53)
[2017-01-27] MEDS: METHADONE HCL 40 MG DISPERSABLE TABLET PO SCH ×2 (09:53→21:35)
[2017-01-27] MEDS: PRENATAL VITAMINS W/ FOLIC ACID TABLET (FP) PO SCH (09:53)
[2017-01-27] MEDS: MAGNESIUM HYDROX 2400MG/30ML ORAL SUSPENSION 30 ML CUP PO PRN (09:54)
[2017-01-27] MEDS: NICOTINE POLACRILEX 2 MG GUM BUC PRN ×2 (11:08→21:36)
[2017-01-27] MEDS ORDERED: SODIUM PHOSPHATE/NA BIPHOS 133 ML ENEMA PR ONE (14:25)
[2017-01-27] MEDS ORDERED: MINERAL OIL ENEMA 133 ML ENEMA PR PRN (14:25)
[2017-01-27] MEDS ORDERED: LACTULOSE 20 GM/30 ML UDC (FOR ORAL USE ONLY) PO PRN (14:27)
--- NOTE | 2017-01-27 14:27 | PN ---
S Progress Note Note: patient reports constipation 2/2 methadon, not relieve by several days of colac and senna wwill give fleets enmea and lactulaose today and prn
[2017-01-27] MEDS ORDERED: LACTULOSE 20 GM/30 ML UDC (FOR ORAL USE ONLY) PO ONE (14:29)
[2017-01-27] MEDS: THIAMINE HCL 100 MG TABLET (FP) PO SCH (21:34)
[2017-01-27] MEDS: DOCUSATE SODIUM 100 MG CAPSULE (FP) PO SCH (21:34)
[2017-01-27] MEDS: SENNOSIDES 8.6MG TABLET (FP) PO SCH (21:35)
[2017-01-27] MEDS: LIDOCAINE PATCH REMOVAL MC SCH (21:37)
[2017-01-27] MEDS: IBUPROFEN 400 MG TABLET (FP) PO PRN (23:48)
[2017-01-28] MEDS: PRENATAL VITAMINS W/ FOLIC ACID TABLET (FP) PO SCH (10:32)
[2017-01-28] MEDS: buPROPion HCL 75 MG TABLET PO SCH (10:32)
[2017-01-28] MEDS: METHADONE HCL 40 MG DISPERSABLE TABLET PO SCH ×2 (10:32→21:33)
[2017-01-28] MEDS: LIDOCAINE 5% TOPICAL PATCH TP SCH (10:33)
[2017-01-28] MEDS: LIDOCAINE PATCH REMOVAL MC SCH (21:33)
[2017-01-28] MEDS: DOCUSATE SODIUM 100 MG CAPSULE (FP) PO SCH (21:33)
[2017-01-28] MEDS: SENNOSIDES 8.6MG TABLET (FP) PO SCH (21:33)
[2017-01-28] MEDS: THIAMINE HCL 100 MG TABLET (FP) PO SCH (21:33)
[2017-01-29] MEDS: IBUPROFEN 400 MG TABLET (FP) PO PRN ×2 (06:59→23:05)
--- NOTE | 2017-01-29 08:06 | PN ---
[facility] Progress Note Note: complain of back pain,frequency on urination,ua ordered
[2017-01-29] MEDS ORDERED: PT OWN MED DRAWER 7, Y5N ONE (09:37)
[2017-01-29] MEDS: METHADONE HCL 40 MG DISPERSABLE TABLET PO SCH ×2 (09:38→21:26)
[2017-01-29] MEDS: PRENATAL VITAMINS W/ FOLIC ACID TABLET (FP) PO SCH (09:38)
[2017-01-29] MEDS: buPROPion HCL 75 MG TABLET PO SCH (09:38)
[2017-01-29] MEDS: LIDOCAINE 5% TOPICAL PATCH TP SCH (09:39)
[2017-01-29] MEDS: ALBUTEROL SO4 18 GM HFA INHALER IH PRN (09:41)
[2017-01-29 16:16] LABS: URINE APPEARANCE SLCLOUDY; URINE BILIRUBIN NEGATIVE (NEGATIVE); URINE BLOOD 2+ (NEGATIVE); URINE COLOR YELLOW; URINE GLUCOSE (UA) NEGATIVE (NEGATIVE); URINE KETONE NEGATIVE (NEGATIVE); URINE NITRITE NEGATIVE (NEGATIVE); URINE PROTEIN NEGATIVE (NEGATIVE); URINE UROBILINOGEN NEGATIVE mg/dL (0.2-1.0)
[2017-01-29 16:27] LABS: URINE BACTERIA RARE /hpf (NONE SEEN); URINE RBC <1 /hpf (0-3); URINE WBC 5 /hpf (3-5)
[2017-01-29 19:10] LABS: URINE LEUK ESTERASE 1+ (NEGATIVE)
[2017-01-29] MEDS: SENNOSIDES 8.6MG TABLET (FP) PO SCH (21:26)
[2017-01-29] MEDS: THIAMINE HCL 100 MG TABLET (FP) PO SCH (21:26)
[2017-01-29] MEDS: DOCUSATE SODIUM 100 MG CAPSULE (FP) PO SCH (21:26)
[2017-01-29] MEDS: LIDOCAINE PATCH REMOVAL MC SCH (21:28)
[2017-01-30] MEDS: METHADONE HCL 40 MG DISPERSABLE TABLET PO SCH ×2 (10:34→21:09)
[2017-01-30] MEDS: SULFAMETHOXAZOLE/TRIMETHOPRIM 800MG/160MG D.S. TABLET PO SCH ×2 (10:34→21:08)
[2017-01-30] MEDS: buPROPion HCL 75 MG TABLET PO SCH (10:34)
[2017-01-30] MEDS: PRENATAL VITAMINS W/ FOLIC ACID TABLET (FP) PO SCH (10:36)
[2017-01-30] MEDS: LIDOCAINE 5% TOPICAL PATCH TP SCH (10:36)
[2017-01-30] MEDS: NICOTINE POLACRILEX 2 MG GUM BUC PRN (13:20)
[2017-01-30] MEDS: SENNOSIDES 8.6MG TABLET (FP) PO SCH (21:08)
[2017-01-30] MEDS: THIAMINE HCL 100 MG TABLET (FP) PO SCH (21:08)
[2017-01-30] MEDS: DOCUSATE SODIUM 100 MG CAPSULE (FP) PO SCH (21:08)
[2017-01-30] MEDS: LIDOCAINE PATCH REMOVAL MC SCH (21:09)
[2017-01-31] MEDS: IBUPROFEN 400 MG TABLET (FP) PO PRN ×2 (00:23→18:26)
[2017-01-31] MEDS: METHADONE HCL 40 MG DISPERSABLE TABLET PO SCH ×2 (10:09→21:38)
[2017-01-31] MEDS: LIDOCAINE 5% TOPICAL PATCH TP SCH (10:10)
[2017-01-31] MEDS: SULFAMETHOXAZOLE/TRIMETHOPRIM 800MG/160MG D.S. TABLET PO SCH ×2 (10:10→21:38)
[2017-01-31] MEDS: buPROPion HCL 75 MG TABLET PO SCH (10:10)
[2017-01-31] MEDS: PRENATAL VITAMINS W/ FOLIC ACID TABLET (FP) PO SCH (10:10)
[2017-01-31] MEDS: SENNOSIDES 8.6MG TABLET (FP) PO SCH (21:38)
[2017-01-31] MEDS: THIAMINE HCL 100 MG TABLET (FP) PO SCH (21:39)
[2017-01-31] MEDS: LIDOCAINE PATCH REMOVAL MC SCH (21:39)
[2017-01-31] MEDS: DOCUSATE SODIUM 100 MG CAPSULE (FP) PO SCH (21:39)
[2017-02-01] MEDS ORDERED: PT OWN MED DRAWER 7, Y5N ONE (08:19)
[2017-02-01] MEDS: SULFAMETHOXAZOLE/TRIMETHOPRIM 800MG/160MG D.S. TABLET PO SCH ×2 (10:12→21:31)
[2017-02-01] MEDS: METHADONE HCL 40 MG DISPERSABLE TABLET PO SCH ×2 (10:12→21:30)
[2017-02-01] MEDS: PRENATAL VITAMINS W/ FOLIC ACID TABLET (FP) PO SCH (10:13)
[2017-02-01] MEDS: buPROPion HCL 75 MG TABLET PO SCH (10:13)
[2017-02-01] MEDS: LIDOCAINE 5% TOPICAL PATCH TP SCH (10:13)
[2017-02-01] MEDS ORDERED: ALBUTEROL SO4 2.5/IPRATROPIUM 0.5 INH SOL 3 ML VIAL.NEB. NEB PRN (18:32)
[2017-02-01] MEDS: IBUPROFEN 400 MG TABLET (FP) PO PRN (18:48)
[2017-02-01] MEDS: THIAMINE HCL 100 MG TABLET (FP) PO SCH (21:31)
[2017-02-01] MEDS: LIDOCAINE PATCH REMOVAL MC SCH (21:31)
[2017-02-01] MEDS: SENNOSIDES 8.6MG TABLET (FP) PO SCH (21:31)
[2017-02-01] MEDS: DOCUSATE SODIUM 100 MG CAPSULE (FP) PO SCH (21:31)
[2017-02-01] MEDS: diphenhydrAMINE HCL 25 MG CAPSULE (FP) PO PRN (23:34)
[2017-02-02] MEDS: PRENATAL VITAMINS W/ FOLIC ACID TABLET (FP) PO SCH (10:32)
[2017-02-02] MEDS: METHADONE HCL 40 MG DISPERSABLE TABLET PO SCH ×2 (10:32→22:18)
[2017-02-02] MEDS: buPROPion HCL 75 MG TABLET PO SCH (10:32)
[2017-02-02] MEDS: LIDOCAINE 5% TOPICAL PATCH TP SCH (10:32)
[2017-02-02] MEDS ORDERED: COLLOIDAL OATMEAL 1 BAR EACH TP PRN (12:29)
[2017-02-02] MEDS: IBUPROFEN 400 MG TABLET (FP) PO PRN (17:11)
[2017-02-02] MEDS: THIAMINE HCL 100 MG TABLET (FP) PO SCH (21:33)
[2017-02-02] MEDS: SENNOSIDES 8.6MG TABLET (FP) PO SCH (21:33)
[2017-02-02] MEDS: DOCUSATE SODIUM 100 MG CAPSULE (FP) PO SCH (21:33)
[2017-02-02] MEDS: LIDOCAINE PATCH REMOVAL MC SCH (21:33)
[2017-02-02] MEDS: diphenhydrAMINE HCL 25 MG CAPSULE (FP) PO PRN (22:19)
[2017-02-03] MEDS: METHADONE HCL 40 MG DISPERSABLE TABLET PO SCH ×2 (10:40→21:28)
[2017-02-03] MEDS: buPROPion HCL 75 MG TABLET PO SCH (10:40)
[2017-02-03] MEDS: LIDOCAINE 5% TOPICAL PATCH TP SCH (10:40)
[2017-02-03] MEDS: PRENATAL VITAMINS W/ FOLIC ACID TABLET (FP) PO SCH (10:40)
[2017-02-03] MEDS: NAPROXEN 500 MG TABLET (FP) PO SCH ×2 (12:04→21:27)
[2017-02-03] MEDS: PANTOPRAZOLE 40 MG TABLET (FP) PO SCH (12:04)
[2017-02-03] MEDS: THIAMINE HCL 100 MG TABLET (FP) PO SCH (21:27)
[2017-02-03] MEDS: DOCUSATE SODIUM 100 MG CAPSULE (FP) PO SCH (21:27)
[2017-02-03] MEDS: SENNOSIDES 8.6MG TABLET (FP) PO SCH (21:27)
[2017-02-03] MEDS: LIDOCAINE PATCH REMOVAL MC SCH (21:29)
[2017-02-04] MEDS: LIDOCAINE 5% TOPICAL PATCH TP SCH (10:41)
[2017-02-04] MEDS: METHADONE HCL 40 MG DISPERSABLE TABLET PO SCH ×2 (10:41→21:35)
[2017-02-04] MEDS: buPROPion HCL 75 MG TABLET PO SCH (10:42)
[2017-02-04] MEDS: PRENATAL VITAMINS W/ FOLIC ACID TABLET (FP) PO SCH (10:42)
[2017-02-04] MEDS: NAPROXEN 500 MG TABLET (FP) PO SCH ×2 (10:42→21:34)
[2017-02-04] MEDS: PANTOPRAZOLE 40 MG TABLET (FP) PO SCH (10:42)
--- NOTE | 2017-02-04 14:19 | PN ---
Psychiatric Progress Note Vital Signs: Vital Signs Period Temp Pulse Resp BP Sys/Burgess Pulse Ox Last 24 Hr 97.5 F 60-108 16-18 118-144/71-88 Date of Session: 02/04/17 Chief Complaint:: "Kenny still depressed and anxious at time." HPI: Patient addressed Alcohol,Opioid and Cocaine dependence comorbid with Substance induced mood disorder. ROS: Significant for COPD,BA,Athritis,Kidney stone,hep c. Current Medications: Active Medications Generic Name Dose Route Start Last Admin Trade Name Freq PRN Reason Stop Dose Admin Acetaminophen 650 mg 01/17/17 14:27 01/18/17 06:40 Tylenol - PO 650 mg Q4H PRN Administration FEVER OR PAIN Al Hydroxide/Mg Hydroxide 30 ml 01/17/17 14:27 01/25/17 11:01 Mylanta Oral Suspension - PO 30 ml Q6H PRN Administration DYSPEPSIA Albuterol Sulfate 2 puff 01/17/17 22:33 01/29/17 09:41 Ventolin Hfa Inhaler - IH 2 puff Q4H PRN Administration SHORT OF BREATH/WHEEZING Albuterol/Ipratropium 1 amp 02/01/17 18:32 02/01/17 18:39 Duoneb - NEB 1 amp Q4H PRN Administration SHORTNESS OF BREATH Aripiprazole 5 mg 02/04/17 14:15 Abilify PO DAILY FORTUNATO Bupropion HCl 75 mg 01/18/17 10:00 02/04/17 10:42 Wellbutrin - PO 75 mg DAILY FORTUNATO Administration Bupropion HCl 100 mg 02/05/17 10:00 Wellbutrin - PO DAILY FORTUNATO Colloidal Oatmeal 1 applic 02/02/17 12:29 02/02/17 13:26 Aveeno Soap - TP 1 applic DAILY PRN Administration HYGEINE Diphenhydramine HCl 50 mg 02/01/17 23:28 02/02/17 22:19 Benadryl - PO 02/04/17 23:27 50 mg HS PRN Administration INSOMNIA Docusate Sodium 300 mg 01/26/17 22:00 02/03/17 21:27 Colace - PO 300 mg HS FORTUNATO Administration Eucalyptus/Menthol/Phenol/Sorbitol 1 each 01/17/17 14:27 Cepastat Lozenge - MM Q4H PRN SORE THROAT Guaifenesin 10 ml 01/17/17 14:27 Robitussin Dm - PO Q6H PRN COUGH Hydroxyzine Pamoate 50 mg 01/17/17 14:27 01/30/17 21:11 Vistaril - PO 50 mg Q4H PRN Administration AGITATION Lactulose 20 gm 01/27/17 14:27 Cephulac (Oral Use) PO TID PRN CONSTIPATION Lidocaine 2 patch 01/18/17 10:00 02/04/17 10:41 Lidoderm Patch - TP 2 patch DAILY FORTUNATO Administration Loperamide HCl 4 mg 01/17/17 14:27 Imodium - PO Q6H PRN DIARRHEA Magnesium Hydroxide 30 ml 01/17/17 14:27 01/27/17 09:54 Milk Of Magnesia - PO 30 ml DAILY PRN Administration CONSTIPATION Methadone HCl 40 mg 02/02/17 22:00 02/04/17 10:41 Dolophine - PO 40 mg BID FORTUNATO Administration Mineral Oil 133 ml 01/27/17 14:25 01/27/17 14:43 Fleet Mineral Oil Rectal Enema - [place] 133 ml DAILY PRN Administration CONSTIPATION Miscellaneous 1 each 01/17/17 22:00 02/03/17 21:29 Lidoderm Patch Removal MC 1 each DAILY@2200 FORTUNATO Administration Naproxen 500 mg 02/03/17 11:45 02/04/17 10:42 Naprosyn - PO 500 mg BID FORTUNATO Administration Nicotine Polacrilex 2 mg 01/17/17 14:27 01/30/17 13:20 Nicorette Gum - BUC 2 mg Q2H PRN Administration NICOTINE REPLACEMENT RX Pantoprazole Sodium 40 mg 02/03/17 11:45 02/04/17 10:42 Protonix - PO 40 mg DAILY FORTUNATO Administration Multivit/Folic Acid/Iron 1 tab 01/18/17 10:00 02/04/17 10:42 Vitamins (Sjr) - PO 1 tab DAILY FORTUNATO Administration Pseudoephedrine/Triprolidine 1 combo 01/17/17 14:27 Actifed - PO TID PRN NASAL CONGESTION Senna 2 tab 01/26/17 22:00 02/03/17 21:27 Senna - PO 2 tab HS FORTUNATO Administration Thiamine HCl 100 mg 01/17/17 22:00 02/03/17 21:27 Vitamin B1 - PO 100 mg HS FORTUNATO Administration Current Side Effect: No Lab tests ordered: No Lab tests reviewed: Yes Provider note:: Chart was revuewed,patient was seen,treatment plan has beeen discussed with the patient including medications management.Wellbutrin 75 mg po daily will be adjusted to 150 mg po daily,Neurontin 300 mg po tid will be adjusted to 400 mg po tid.Relaxation techniques has been discussed as well.Supportive therapy provided. Total face to face time:: 30 Mental Status Exam - Mental Status Exam Alert and Oriented to: Time, Place, Person Cognitive Function: Grossly Intact Patient Appearance: Well Groomed Mood: Anxious Affect: Mood Congruent, Labile Patient Behavior: Cooperative Speech Pattern: Clear Voice Loudness: Normal Thought Process: Goal Oriented Thought Disorder: Not Present Hallucinations: Denies Suicidal Ideation: Denies Homicidal Ideation: Denies Insight/Judgement: Fair Sleep: Fair Appetite: Fair Muscle strength/Tone: Normal Gait/Station: Normal Psychiatric Treatment Plan - Problem List (6) Asthma Qualifiers: Asthma severity: mild intermittent Asthma complication type: uncomplicated (8) Cocaine dependence Qualifiers: Substance use status: uncomplicated Qualified Code(s): F14.20 - Cocaine dependence, uncomplicated; F14.20 - Cocaine dependence, uncomplicated; F14.20 - Cocaine dependence, uncomplicated (9) Hepatitis C Qualifiers: Viral hepatitis chronicity: chronic Hepatic coma status: without hepatic coma Qualified Code(s): B18.2 - Chronic viral hepatitis C; B18.2 - Chronic viral hepatitis C; B18.2 - Chronic viral hepatitis C; B18.2 - Chronic viral hepatitis C
[2017-02-04] MEDS: ARIPiprazole 5 MG TABLET (FP) PO SCH (14:42)
[2017-02-04] MEDS ORDERED: PT OWN MED DRAWER 7, Y5N ONE (15:19)
[2017-02-04] MEDS: THIAMINE HCL 100 MG TABLET (FP) PO SCH (21:34)
[2017-02-04] MEDS: DOCUSATE SODIUM 100 MG CAPSULE (FP) PO SCH (21:35)
[2017-02-04] MEDS: LIDOCAINE PATCH REMOVAL MC SCH (21:36)
[2017-02-04] MEDS: SENNOSIDES 8.6MG TABLET (FP) PO SCH (21:36)
[2017-02-05 07:08] VITALS: TEMP 97.9
[2017-02-05] MEDS ORDERED: PT OWN MED DRAWER 7, Y5N ONE (08:51)
[2017-02-05] MEDS: METHADONE HCL 40 MG DISPERSABLE TABLET PO SCH ×2 (10:15→21:44)
[2017-02-05] MEDS: PANTOPRAZOLE 40 MG TABLET (FP) PO SCH (10:15)
[2017-02-05] MEDS: NAPROXEN 500 MG TABLET (FP) PO SCH ×2 (10:15→21:44)
[2017-02-05] MEDS: PRENATAL VITAMINS W/ FOLIC ACID TABLET (FP) PO SCH (10:15)
[2017-02-05] MEDS: ARIPiprazole 5 MG TABLET (FP) PO SCH (10:15)
[2017-02-05] MEDS: buPROPion HCL 100 MG TABLET PO SCH (10:15)
[2017-02-05] MEDS: LIDOCAINE 5% TOPICAL PATCH TP SCH (10:16)
[2017-02-05] MEDS: ACETAMINOPHEN 325 MG TABLET (FP) PO PRN (13:56)
[2017-02-05] MEDS: DOCUSATE SODIUM 100 MG CAPSULE (FP) PO SCH (21:44)
[2017-02-05] MEDS: SENNOSIDES 8.6MG TABLET (FP) PO SCH (21:44)
[2017-02-05] MEDS: THIAMINE HCL 100 MG TABLET (FP) PO SCH (21:44)
[2017-02-05] MEDS: LIDOCAINE PATCH REMOVAL MC SCH (21:45)
[2017-02-06] MEDS ORDERED: METHADONE HCL 40 MG DISPERSABLE TABLET PO SCH (06:00)
[2017-02-06 07:03] VITALS: BP 178/88; PULSE 58
[2017-02-06] MEDS ORDERED: PT OWN MED DRAWER 7, Y5N ONE (08:53)
[2017-02-06] MEDS: NAPROXEN 500 MG TABLET (FP) PO SCH (09:11)
[2017-02-06] MEDS: ARIPiprazole 5 MG TABLET (FP) PO SCH (09:11)
[2017-02-06] MEDS: PRENATAL VITAMINS W/ FOLIC ACID TABLET (FP) PO SCH (09:11)
[2017-02-06] MEDS: buPROPion HCL 100 MG TABLET PO SCH (09:12)
[2017-02-06] MEDS: PANTOPRAZOLE 40 MG TABLET (FP) PO SCH (09:12)
[2017-02-06] MEDS: LIDOCAINE 5% TOPICAL PATCH TP SCH (09:13)
--- NOTE | 2017-02-06 09:14 | PN ---
Psychiatric Progress Note Vital Signs: Vital Signs Period Temp Pulse Resp BP Sys/Burgess Pulse Ox Last 24 Hr 97.9 F 58-64 16-18 138-178/86-88 Date of Session: 02/06/17 Chief Complaint:: Discharge visit HPI: Patient addressed Alcohol,Opioid and Cocaine dependence comorbid with Substance induced mood disorder. ROS: Significant for COPD,BA,CHRONIC ARTHRITIS,lOW BACK PAIN. Current Medications: Active Medications Generic Name Dose Route Start Last Admin Trade Name Freq PRN Reason Stop Dose Admin Acetaminophen 650 mg 01/17/17 14:27 02/05/17 13:56 Tylenol - PO 650 mg Q4H PRN Administration FEVER OR PAIN Al Hydroxide/Mg Hydroxide 30 ml 01/17/17 14:27 01/25/17 11:01 Mylanta Oral Suspension - PO 30 ml Q6H PRN Administration DYSPEPSIA Albuterol Sulfate 2 puff 01/17/17 22:33 01/29/17 09:41 Ventolin Hfa Inhaler - IH 2 puff Q4H PRN Administration SHORT OF BREATH/WHEEZING Albuterol/Ipratropium 1 amp 02/01/17 18:32 02/01/17 18:39 Duoneb - NEB 1 amp Q4H PRN Administration SHORTNESS OF BREATH Aripiprazole 5 mg 02/04/17 14:15 02/05/17 10:15 Abilify PO 5 mg DAILY FORTUNATO Administration Bupropion HCl 100 mg 02/05/17 10:00 02/05/17 10:15 Wellbutrin - PO 100 mg DAILY FORTUNATO Administration Colloidal Oatmeal 1 applic 02/02/17 12:29 02/02/17 13:26 Aveeno Soap - TP 1 applic DAILY PRN Administration HYGEINE Docusate Sodium 300 mg 01/26/17 22:00 02/05/17 21:44 Colace - PO 300 mg HS FORTUNATO Administration Eucalyptus/Menthol/Phenol/Sorbitol 1 each 01/17/17 14:27 Cepastat Lozenge - MM Q4H PRN SORE THROAT Guaifenesin 10 ml 01/17/17 14:27 Robitussin Dm - PO Q6H PRN COUGH Hydroxyzine Pamoate 50 mg 01/17/17 14:27 01/30/17 21:11 Vistaril - PO 50 mg Q4H PRN Administration AGITATION Lactulose 20 gm 01/27/17 14:27 Cephulac (Oral Use) PO TID PRN CONSTIPATION Lidocaine 2 patch 01/18/17 10:00 02/05/17 10:16 Lidoderm Patch - TP 2 patch DAILY FORTUNATO Administration Loperamide HCl 4 mg 01/17/17 14:27 Imodium - PO Q6H PRN DIARRHEA Magnesium Hydroxide 30 ml 01/17/17 14:27 01/27/17 09:54 Milk Of Magnesia - PO 30 ml DAILY PRN Administration CONSTIPATION Methadone HCl 80 mg 02/06/17 06:00 02/06/17 06:20 Dolophine - PO 02/07/17 05:00 80 mg DAILY@0600 FORTUNATO Administration Mineral Oil 133 ml 01/27/17 14:25 01/27/17 14:43 Fleet Mineral Oil Rectal Enema - [place] 133 ml DAILY PRN Administration CONSTIPATION Miscellaneous 1 each 01/17/17 22:00 02/05/17 21:45 Lidoderm Patch Removal MC 1 each DAILY@2200 FORTUNATO Administration Naproxen 500 mg 02/03/17 11:45 02/05/17 21:44 Naprosyn - PO 500 mg BID FORTUNATO Administration Nicotine Polacrilex 2 mg 01/17/17 14:27 01/30/17 13:20 Nicorette Gum - BUC 2 mg Q2H PRN Administration NICOTINE REPLACEMENT RX Pantoprazole Sodium 40 mg 02/03/17 11:45 02/05/17 10:15 Protonix - PO 40 mg DAILY FORTUNATO Administration Multivit/Folic Acid/Iron 1 tab 01/18/17 10:00 02/05/17 10:15 Vitamins (Sjr) - PO 1 tab DAILY FORTUNATO Administration Pseudoephedrine/Triprolidine 1 combo 01/17/17 14:27 Actifed - PO TID PRN NASAL CONGESTION Senna 2 tab 01/26/17 22:00 02/05/17 21:44 Senna - PO 2 tab HS FORTUNATO Administration Thiamine HCl 100 mg 01/17/17 22:00 02/05/17 21:44 Vitamin B1 - PO 100 mg HS FORTUNATO Administration Current Side Effect: No Lab tests ordered: No Lab tests reviewed: Yes Provider note:: Patient completed this program today.She has met her treatment goals and will continue to address her issues at [facility] in [facility].Rosy reports finding that current medications:abilify 5 mg po daily and Wellbutrin 100 mg po am help to cope with depression,anxiety,mood instability.Patient identifies areas of difficulties ,behaviors which contribute to relapse.Coping skills,support utlization has mala discussed as well.Scripts for 30 days provided.Patient is stable for discharge today. Total face to face time:: 30 Mental Status Exam - Mental Status Exam Alert and Oriented to: Time, Place, Person Cognitive Function: Grossly Intact Patient Appearance: Well Groomed Mood: Hopeful, Euthymic Affect: Appropriate, Mood Congruent Patient Behavior: Cooperative Speech Pattern: Clear Voice Loudness: Normal Thought Process: Goal Oriented Thought Disorder: Not Present Hallucinations: Denies Suicidal Ideation: Denies Homicidal Ideation: Denies Insight/Judgement: Fair Sleep: Fair Appetite: Good Muscle strength/Tone: Normal Gait/Station: Normal Psychiatric Treatment Plan - Problem List (1) Acute bronchitis Current Visit: Yes (2) Arthritis Current Visit: Yes (3) Low back pain Current Visit: Yes (4) Right kidney stone Current Visit: Yes (5) Weight loss Current Visit: Yes (6) Asthma Current Visit: Yes Qualifiers: Asthma severity: mild intermittent Asthma complication type: uncomplicated Qualified Code(s): J45.20 - Mild intermittent asthma, uncomplicated; J45.20 - Mild intermittent asthma, uncomplicated; J45.20 - Mild intermittent asthma, uncomplicated (7) COPD (chronic obstructive pulmonary disease) Current Visit: Yes (8) Cocaine dependence Current Visit: Yes Qualifiers: Substance use status: uncomplicated Qualified Code(s): F14.20 - Cocaine dependence, uncomplicated; F14.20 - Cocaine dependence, uncomplicated; F14.20 - Cocaine dependence, uncomplicated (9) Hepatitis C Current Visit: Yes Qualifiers: Viral hepatitis chronicity: chronic Hepatic coma status: without hepatic coma Qualified Code(s): B18.2 - Chronic viral hepatitis C; B18.2 - Chronic viral hepatitis C; B18.2 - Chronic viral hepatitis C; B18.2 - Chronic viral hepatitis C (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
== END 2017-02-06 10:14 | disposition home or self-care (01) | DRG 772 ==
LOC: YASAS 12:58 → Y3E 12:59
PROVIDERS: ADMIT Psychiatry & Neurology Psychiatry; ATTEND Psychiatry & Neurology Psychiatry
PROC: HZ42ZZZ Group Counseling for Substance Abuse Treatment, Cognitive-Behavioral (ICD-10-PCS; principal; 2017-01-17)
DX: F10.20 Alcohol dependence, uncomplicated (principal); F11.20 Opioid dependence, uncomplicated; F14.20 Cocaine dependence, uncomplicated; F19.24 Other psychoactive substance dependence with psychoactive substance-induced mood disorder; J20.9 Acute bronchitis, unspecified; M19.90 Unspecified osteoarthritis, unspecified site; M54.5 Low back pain; G89.29 Other chronic pain; N20.0 Calculus of kidney; J45.20 Mild intermittent asthma, uncomplicated; J44.9 Chronic obstructive pulmonary disease, unspecified; B18.2 Chronic viral hepatitis C; K59.00 Constipation, unspecified; Z87.898 Personal history of other specified conditions; Z91.5 Personal history of self-harm; W19.XXXA Unspecified fall, initial encounter; Z91.81 History of falling; Y93.9 Activity, unspecified; Y92.239 Unspecified place in hospital as the place of occurrence of the external cause
CPT/HCPCS: 81003; 81015; 82140; 87086; 94640